=== PATIENT | female | born 1980 | race Hispanic/Latino ===

== ENCOUNTER 2020-10-22 14:17 | Emergency (ER) | payer SELFPAY ==
[2020-10-22] MEDS ORDERED: LEVALBUTEROL 1.25 MG/3 ML NEB ONE (15:13)
[2020-10-22 16:37] LABS: Arterial Blood Carboxyhemoglob 1.1 % (0-1.5); Blood Gas Oxyhemoglobin 94.1 % (94-97); Blood O2 Saturation 96.4 % (92-98.5)
--- NOTE | 2020-10-22 16:52 | RAD REPORT ---
EXAM DESCRIPTION: Tommie Single View10/22/2020 3:45 pm CLINICAL HISTORY: sob COMPARISON: none FINDINGS: The lungs appear clear of acute infiltrate. The heart is normal size IMPRESSION: No acute abnormalities displayed
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
[2020-10-22 17:46] VITALS: BP 133/95; O2SAT 98
== END 2020-10-22 17:41 | disposition home or self-care (01) ==
LOC: ER 14:17
DX: R06.00 Dyspnea, unspecified (principal)
CPT/HCPCS: 71045; 82805; 99284